=== PATIENT | female | born 1940 | race Caucasian/White ===

== ENCOUNTER 2024-12-18 15:51 | Emergency (ER) | payer OTHER, SELFPAY ==
[2024-12-18] VITALS (10 sets, daily range): BP systolic 114–149; BP diastolic 60–85; BMI 24.8
[2024-12-18 16:20] LABS: % Basophils 0.9 % (0-2); % Eosinophils 0.4 % (0-6); % Immature Granulocytes 0.3 % (0-0.5); % Lymphocytes 31.3 % (20.5-51.1); % Monocytes 7.2 % (1.7-9.3); % Neutrophils 59.9 % (42.2-75.2); Absolute Basophils 0.1 10^3/uL (0-0.2); Absolute Lymphocytes 2.1 10^3/uL (1.2-3.4); Absolute Monocytes 0.5 10^3/uL (0.1-0.6); Hematocrit 33.8 % (37.0-47.0); Hemoglobin 11.2 g/dL (12.0-16.0); Mean Corp Hgb Conc. 33.1 g/dL (33.0-37.0); Mean Corpuscular Hgb 27.6 pg (27.0-31.0); Mean Corpuscular Volume 83.3 fL (81.0-99.0); Mean Platelet Volume 10.6 fL (7.4-10.4); Nucleated Red Blood Cells % 0 %; Platelet Count 235 10^3/uL (130-400); Red Blood Cell Count 4.06 10^6/uL (4.20-5.40); Red Cell Dist. Width 15.9 % (11.5-14.5); White Blood Cell Count 6.7 10^3/uL (4.8-10.8)
[2024-12-18 16:36] LABS: Blood Urea Nitrogen 14 mg/dl (7-17); Calcium 9.4 mg/dl (8.4-10.2); Carbon Dioxide 24 mmol/L (22-30); Chloride 108 mmol/L (98-107); Glucose 91 mg/dl (70-99); Sodium 138 mmol/L (135-145); eGFR > 60.00
[2024-12-18 16:42] LABS: Troponin I < 0.012 ng/ml
[2024-12-18 17:45] LABS: TSH Reflex To Free T4 0.38 uIU/ml (0.47-4.68)
[2024-12-18 18:15] LABS: Free T4 1.16 ng/dl (0.78-2.19)
--- NOTE | 2024-12-18 18:51 | ED.GENMED ---
History of Present Illness
General
Chief Complaint: Heart Rate Problem
Time Seen by Provider: 12/18/24 18:26
History of Present Illness
History of Present Illness:
84-year-old female with history of paroxysmal A-fib on Xarelto presents to the emergency department for evaluation after a fall. She states she standing at her kitchen counter when she began to feel weak in the legs, felt as though she had a
syncopal event leading to the fall. She fortunately fell on top of a pile of paper towels. She also complains of left hip pain since the fall, she is status post left hip ORIF performed at [facility] in July. [facility] were [facility] negative however she was directed to the ED for further evaluation of head injury and abnormal EKG. She denies any heart palpitations or dyspnea. She notes that 2 months ago her diltiazem was stopped
by her psychopaedic nurse due to frequent dizzy spells however they have gotten worse since stopping her diltiazem.
Past History
Past History
ED Past Medical History: CVA
Family History
Family History: Other (Reviewed and non-contributory)
Review of Systems
Review of Systems
Allergies reviewed?: Yes
All Other Systems: ROS reviewed and negative except as documented in HPI and ROS
Phy Exam
Physical Exam
Physical Exam:
GEN: Well appearing, NAD, WDWN
HEENT: Oral mucosa moist, no scleral icterus
Cardiac: Tachy/irregular, no murmur
Lung: No respiratory distress, no tachypnea
MSK: No gross deformity or injuries
Skin: Good color, no pallor or jaundice, no rashes
Neuro: AO x3, CN II-XII grossly intact; moves all extremities freely
Psych: Calm, cooperative
Course
Orders/Labs/Results
Orders:
Orders
12/18/24 15:52
Electrocardiogram (*1) Urgent
Reason for Study: Atrial Fibrillation
EKG- Treatment ONCE
12/18/24 16:02
CT Head W/o Iv Contrast Urgent
Comment:
Reason For Exam: fall
12/18/24 16:13
Basic Metabolic Panel Urgent
Complete Blood Count/With Diff Urgent
Free T4 Urgent
TSH Reflex To Free T4 Urgent
Troponin I Urgent
12/18/24 18:38
Magnesium Routine
Potassium Routine
12/18/24 18:46
Diltiazem [Cardizem] 60 mg PO NOW STA
12/18/24 19:00
Diltiazem 125 mg/125 ml Nss [Cardizem] 125 mg in 125 ml IV PER PROTOCOL
Initial dose in mg/hr, then titrate:: 5
Titrate to keep:: Heart rate 80-100 bpm
Titrate by mg/hr:: 5 mg/hr
Frequency of titrations (minutes):: 15
Maximum dose in mg/hr:: 15
Abnormal Lab Results
12/18/24
16:13
RBC 4.06 L 10^6/uL
(4.20-5.40)
Hgb 11.2 L g/dL
(12.0-16.0)
Hct 33.8 L %
(37.0-47.0)
RDW 15.9 H %
(11.5-14.5)
MPV 10.6 H fL
(7.4-10.4)
Chloride 108 H mmol/L
(98-107)
TSH (Reflex) 0.38 L uIU/ml
(0.47-4.68)
12/18/24 16:13
12/18/24 18:38
Vital Signs
Initial and Last Documented VS:
Initial Vital Signs
Temp Pulse Resp BP Pulse Ox
97.9 F 100 16 149/85 98
12/18/24 15:57 12/18/24 15:57 12/18/24 15:57 12/18/24 15:57 12/18/24 15:57
Last Documented Vital Signs
Temp Pulse Resp BP Pulse Ox
97.9 F 97 23 133/85 94
12/18/24 15:57 12/18/24 21:15 12/18/24 21:15 12/18/24 21:08 12/18/24 20:45
MDM/Problems Addressed
MDM/Problems Addressed:
From a traumatic injury standpoint the patient has no acute abnormalities identified on workup. Outside facility did obtain bilateral pelvic x-rays that I personally reviewed showing no evidence for osseous injury or hardware disruption. She was
found to be in a mildly rapid A-fib, started on diltiazem drip and given oral loading dose of diltiazem in the ED, diltiazem drip was discontinued and the patient maintained adequate rate control and was asymptomatic. Do not feel there is any
rationale to cardiovert her as she is adequately anticoagulated. Will reinitiate her on oral diltiazem and have her follow-up with her psychopaedic nurse as an outpatient
*Critical Care Note
Total Time (30-74mins, 75-104mins- exclusive of procedures): Not Applicable
ED Attending Note
-
Portions of this chart may have been created with voice recognition software.� Occasional wrong word or��sound alike� substitutions may have occurred due to the inherent limitations of voice recognition software.
Discharge Plan
Departure
Patient Disposition: Home (Routine Discharge)
Date of Disposition: 12/18/24
Time of Disposition: 21:09
Patient with high blood pressure during this ER visit?: No
Discharge Problem:
Atrial fibrillation with RVR
Instructions: Atrial Fibrillation (DC)
Prescriptions:
New
diltiazem HCl 180 mg capsule,extended release 24hr
180 mg PO DAILY Qty: 30 0RF
No Action
acetaminophen [Tylenol] 325 mg Tablet
650 mg PO DAILYPRN PRN (Reason: mild pain)
venlafaxine 150 mg Capsule,Extended Release 24hr
150 mg PO HS
therapeutic multivitamin Tablet
1 tab PO DAILY
alprazolam 0.5 mg Tablet
0.5 mg PO HS
Patient Comments:
08/11/23 filled on 08/08/23 #45
ascorbic acid (vitamin C) [Vitamin C] 500 mg Tablet
500 mg PO DAILY
hydroxychloroquine 200 mg Tablet
200 mg PO MOWEFR
vitamin E 268 mg (400 unit) Capsule
268 mg PO DAILY
cholecalciferol (vitamin D3) [Vitamin D3] 25 mcg (1,000 unit) Tablet
75 mcg PO DAILY
Xarelto 20 mg Tablet
20 mg PO HS
docusate sodium [Colace] 100 mg Capsule
100 mg PO DAILYPRN PRN (Reason: constipation)
atorvastatin 80 mg Tablet
80 mg PO QPM Qty: 30 0RF
bisacodyl 5 mg Tablet,Delayed Release (Dr/Ec)
10 mg PO DAILY Qty: 30 0RF
diltiazem HCl 180 mg capsule,extended release 24 hr
180 mg PO BID 30 Days Qty: 60 0RF
Rx Instructions:
Disregard previous script sent for 240mg. This script replaces it.
Referrals:
Ck Burleson MD [Family Provider] -
Activity Restrictions/Additional Instructions:
Follow up with your psychopaedic nurse next week
Interventions
Interventions:
*Risk Screen - Suicide Last Done: 12/18/24 15:57
*General Assessment Last Done: 12/18/24 15:57
*Neglect/Abuse Screening Last Done: 12/18/24 15:57
*ED COVID-19 Vaccine History Last Done: 12/18/24 15:57
*Nursing Disposition Last Done: 12/18/24 21:30
ED- Cardiac Assessment Last Done: 12/18/24 19:00
ED- Pulmonary Assessment Last Done: 12/18/24 19:00
Discharge Date and Time
Discharge Date/Time: 12/18/24 21:30
Print Language: CENTRAL AFRICAN
[2024-12-18] MEDS: CARDIZEM 125 IV (18:57)
[2024-12-18] MEDS: CARDIZEM 60 MG PO (18:57)
[2024-12-18 19:03] LABS: Potassium 4.2 mmol/L (3.5-5.1)
== END 2024-12-18 21:30 | disposition home or self-care (01) ==
LOC: EMR 15:51
PROVIDERS: Physician Assistant; Student in an Organized Health Care Education/Training Program; EMERGENCY PHYSICIAN Emergency Medicine; FAMILY PHYSICIAN Family Medicine
DX: I48.0 Paroxysmal atrial fibrillation (principal); Z79.01 Long term (current) use of anticoagulants; W19.XXXA Unspecified fall, initial encounter
CPT/HCPCS: 99285; 96374; 70450; 80048; 83735; 84132; 84439; 84443; 84484; 85025; 93005